=== PATIENT | male | born 1965 | race African-American/Black ===

== ENCOUNTER 2018-09-19 21:58 | Emergency (ER) | payer SELFPAY ==
[2018-09-19] MEDS ORDERED: Ciprofloxacin 500 MG TAB ONE (23:43)
[2018-09-19] MEDS ORDERED: Sodium Chloride 0.9% 1,000 ML ONE (23:43)
[2018-09-19] MEDS ORDERED: Diphenoxylate HCl/Atropine Tablet ONE (23:43)
[2018-09-19 23:58] LABS: Band 13 % (5-11); Hemoglobin 14.7 g/dL (14.0-18.0); Lymphocytes 20 % (21-51); MDiff Complete? YES; Mean Corpuscular HGB CONC 31.4 g/dL (32.0-36.0); Mean Corpuscular Hemoglobin 25.6 pg (27.0-31.0); Mean Corpuscular Volume 81.5 fL (78.0-98.0); Monocytes 14 % (0-10); Neutrophil 52 % (42-75); Platelet Count 212 thou/uL (130-400); Platelet Morphology Comment Appears Adequate; RBC Distribution Width 13.6 % (11.5-14.5); RBC Morphology Normal; Reactive Lymphocytes 1 % (0-10); Red Blood Cell (RBC) Count 5.75 mill/uL (4.70-6.10); White Blood Cell (WBC) Count 10.9 thou/uL (4.8-10.8)
[2018-09-20 00:04] LABS: ALT (SGPT) 12 U/L (8-55); AST (SGOT) 17 U/L (5-34); Albumin 3.5 g/dL (3.5-5.0); Alkaline Phosphatase 78 U/L (40-150); Anion Gap 18 mmol/L (10-20); BUN (Urea Nitrogen) 10 mg/dL (8.9-20.6); Bilirubin, Total 0.5 mg/dL (0.2-1.2); Calc. Creatinine Clearance 0 mL/min (70-130); Calcium 8.3 mg/dL (7.8-10.44); Carbon Dioxide 18 mmol/L (22-29); Chloride 106 mmol/L (98-107); Estimated GFR-MDRD 54; Globulin 3.4 g/dL (2.4-3.5); Glucose 112 mg/dL (70-105); Lipase 8 U/L (8-78); Potassium 4.1 mmol/L (3.5-5.1); Protein, Total 6.9 g/dL (6.0-8.3); Sodium 138 mmol/L (136-145)
== END 2018-09-20 01:03 | disposition home or self-care (01) ==
LOC: MADERS 21:58
DX: K52.9 Noninfective gastroenteritis and colitis, unspecified (principal); E86.0 Dehydration; E66.9 Obesity, unspecified; Z87.891 Personal history of nicotine dependence
CPT/HCPCS: 80053; 82150; 83690; 85025; 96360; J7050

== ENCOUNTER 2020-01-18 18:01 | Emergency (ER) | payer SELFPAY ==
[2020-01-18] MEDS ORDERED: methylPREDNISolone Sod Succ/PF 125 MG/2 ML VIAL ONE (18:17)
[2020-01-18] MEDS ORDERED: Ketorolac Tromethamine 30 MG/ML VIAL ONE (18:17)
[2020-01-18 20:07] LABS: Mean Corpuscular HGB CONC 30.8 g/dL (32.0-36.0); Mean Corpuscular Hemoglobin 24.4 pg (27.0-31.0); Mean Corpuscular Volume 79.1 fL (78.0-98.0); Mean Platelet Volume 6.7 fL (7.4-10.4); Platelet Count 349 thou/uL (130-400); RBC Distribution Width 14.9 % (11.5-14.5); Red Blood Cell (RBC) Count 5.73 mill/uL (4.70-6.10); White Blood Cell (WBC) Count 14.2 thou/uL (4.8-10.8)
[2020-01-18 20:11] LABS: ALT (SGPT) 28 U/L (8-55); AST (SGOT) 25 U/L (5-34); Albumin 3.6 g/dL (3.5-5.0); Alkaline Phosphatase 71 U/L (40-110); Anion Gap 19 mmol/L (10-20); BUN (Urea Nitrogen) 22 mg/dL (8.4-25.7); Bilirubin, Total 0.5 mg/dL (0.2-1.2); Calc. Creatinine Clearance 0 mL/min (70-130); Calcium 9.7 mg/dL (7.8-10.44); Carbon Dioxide 25 mmol/L (22-29); Chloride 100 mmol/L (98-107); Estimated GFR-MDRD 67; Globulin 4.5 g/dL (2.4-3.5); Glucose 143 mg/dL (70-105); Potassium 4.5 mmol/L (3.5-5.1); Protein, Total 8.1 g/dL (6.0-8.3); Sodium 139 mmol/L (136-145)
[2020-01-18 20:19] LABS: Band 2 % (5-11); Lymphocytes 17 % (21-51); MDiff Complete? YES; Monocytes 5 % (0-10); Neutrophil 76 % (42-75); Platelet Morphology Comment Appears Adequate; RBC Morphology Normal
[2020-01-18 20:22] LABS: CRP (Inflammatory) 13.89 mg/dL (= or < 0.5); Uric Acid 12.9 mg/dL (3.5-7.2)
[2020-01-18] MEDS ORDERED: Aspirin Chewable 81 MG TAB ONE (20:25)
[2020-01-18 20:39] LABS: CKMB 5.2 ng/mL (0-6.6)
[2020-01-18] MEDS ORDERED: Enoxaparin Sodium 100 MG/ML SYRINGE ONE (22:02)
== END 2020-01-18 22:19 | disposition short-term general hospital (02) ==
LOC: MADERS 18:01
DX: I21.4 Non-ST elevation (NSTEMI) myocardial infarction (principal); M10.9 Gout, unspecified; R53.1 Weakness; E66.9 Obesity, unspecified; Z87.891 Personal history of nicotine dependence
CPT/HCPCS: 80053; 82550; 82553; 83880; 84443; 84484; 84550; 85025; 86140; 93005; 96372; 96374; 96375; J1650; J1885; J2930

== ENCOUNTER 2024-07-23 00:29 | Emergency (ER) | payer OTHER ==
[2024-07-23] MEDS ORDERED: Fluorescein Opthalmic Strip ONE (00:44)
[2024-07-23] MEDS ORDERED: Tetracaine 0.5% PF 4 ML BOT ONE (00:44)
[2024-07-23] MEDS ORDERED: Erythromycin Base 0.5% Ophth Oint 3.5 gm Tube ONE (01:16)
== END 2024-07-23 01:58 | disposition home or self-care (01) ==
LOC: MADERS 00:29
DX: H10.9 Unspecified conjunctivitis (principal); E66.01 Morbid (severe) obesity due to excess calories; Z87.891 Personal history of nicotine dependence
CPT/HCPCS: 99282